=== PATIENT | male | born 1995 | race Asian ===

== ENCOUNTER → 2017-01-16 | Outpatient (CLI) | payer BC ==
--- NOTE | 2017-01-16 13:40 | DIAGNOSTIC IMAGING REPORT ---
CHEST 2 VIEWS ROUTINE CLINICAL HISTORY: Cough. COMPARISON STUDY: No previous studies for comparison. FINDINGS: Lung volumes are normal. No pneumothorax or pleural effusion is present. No consolidation is identified. Cardiac size is normal. Mediastinal contours are normal. There is no evidence of pulmonary edema. IMPRESSION: No acute cardiopulmonary findings. Electronically signed by: Evans Rodrigues M.D. 01/16/2017 1:39 PM Dictated Date/Time: 01/16/2017 1:38 PM
== END | disposition home or self-care (01) ==
LOC: C.RAD 13:03
PROVIDERS: ATTEND Nurse Practitioner Family
DX: R05 Cough (principal)